=== PATIENT | male | born 1975 | race Caucasian/White ===

== ENCOUNTER 2019-05-19 08:42 | Emergency (ER) | payer OTHER, SELFPAY ==
--- NOTE | ~2019-05-19 | XR_ITS ---
EXAMINATION: XR chest 2V DATE: 05/19/2019 10:55 INDICATION: Shortness of breath. Cough and wheezing. TECHNIQUE: Frontal and lateral views of the chest were obtained. COMPARISON: Chest 2 views 05/31/2013, CT abdomen and pelvis 01/07/2013 FINDINGS: The chest demonstrates clear lungs without pneumonia, pleural effusion, or pneumothorax. Th e heart size is normal. IMPRESSION: 1. No acute cardiopulmonary disease. Reviewed, dictated and finalized at location A. [employer]
[2019-05-19 09:38] VITALS: BP 164/94; PULSE 72; RESP 20; TEMP 36.8; O2SAT 97
--- NOTE | 2019-05-19 10:05 | ED.GENADULT ---
HPI - General Adult General Chief complaint: Upper Respiratory Infection Stated complaint: Congestion/Cold Time Seen by Provider: 05/19/19 10:05 Source: patient Mode of arrival: ambulatory Limitations: no limitations History of Present Illness HPI narrative: 43-year-old male patient presents to the [facility] with complaints of cough and shortness of breath for the past 2 months. Patient denies any fevers that he is aware of but states he has been feeling hot at times. Patient states he has had some head congestion, runny nose, ear pain and sore throat. Patient is not being very cooperative during the exam and not really answering questions and is a very poor historian. Patient states he has seen his doctor multiple times but denies being placed on anything medication vargas. Patient states he has tried [id number] Mucinex but quit taking it is currently not taking any medications and states he no longer wants to take any medications. Patient does have a history of diabetes and states that his sugars have increased to 200-300s since he has been sick Related Data Home Medications Medication Instructions Recorded Confirmed albuterol sulfate [ProAir HFA] INHALATION 05/19/19 budesonide-formoterol [Symbicort] INHALATION 05/19/19 cetirizine mg 05/19/19 diclofenac sodium TOPICAL 05/19/19 duloxetine mg PO 05/19/19 esomeprazole magnesium mg 05/19/19 insulin regular hum U-500 conc 05/19/19 [Humulin R U-500 (Conc) Insulin] insulin regular hum U-500 conc 05/19/19 [Humulin R U-500 (Conc) Insulin] levothyroxine 05/19/19 meloxicam 05/19/19 topiramate 05/19/19 Allergies Allergy/AdvReac Type Severity Reaction Status Date / Time Unable to Assess Allergy Verified 05/19/19 09:52 Review of Systems Review of Systems: Narrative: CONSTITUTIONAL: Denies fever, chills, positive sweats. EYES: Denies visual changes, redness, or discharge. ENT: Positive rhinorrhea, congestion, sore throat, denies otalgia. CARDIOVASCULAR: Denies chest pain, palpitations, or edema. RESPIRATORY: Positive cough with dyspnea. GASTROINTESTINAL: Denies abdominal pain, nausea, vomiting, or diarrhea. GENITOURINARY: Denies dysuria or hematuria. SKIN: Denies rash or itching. MUSCULOSKELETAL: Denies back pain, joint pain, or myalgia. NEUROLOGIC: Positive headache, denies numbness, or weakness. PSYCHIATRIC: Denies anxiety or depression. [facility] Past Medical History Medical History (Updated 05/19/19 @ 11:18 by KODY Nascimento) Back pain Herniated disc Hypercholesterolemia Hypertension Hypothyroidism Tung's Myocardial infarction Type 1 diabetes Family History Family History Other Depression Diabetes mellitus Family history of alcoholism Family history of attention deficit hyperactivity disorder (ADHD) Family history of congestive heart failure Family history of mental disorder Family history of migraine headaches Family history of obesity Social History Social History Alcohol intake: never Comments At the time of my signature I agree with nursing past medical history, surgical, social, and family history. There is no relevant family history pertinent to the presenting complaint. Exam Narrative: Exam Narrative: GENERAL: ill-appearing, well-nourished, and in no acute distress. HEAD: Normocephalic, atraumatic. No tenderness noted to frontal maxillary sinuses on palpation EYES: PERRLA and EOMI. ENT: Nares with erythema and edema noted bilaterally, no rhinorrhea or epistaxis. Mucous membranes moist. Posterior pharynx with no erythema, tonsillar margin, exudates or lesions present. Bilateral TMs are clear with no erythema or foreign bodies in the canal. NECK: Supple. No lymphadenopathy CHEST: Patient does have some tightness and wheezing noted to bilateral upper and lower lobes. No respiratory distress.
[2019-05-19] MEDS: ALBUTEROL SULFATE NEB 2.5 MG/3 ML INH INHALATION (11:12)
[2019-05-19] MEDS: IPRATROPIUM BR 0.02% INH SOLN 0.5 MG/2.5 ML VIAL INHALATION (11:12)
== END 2019-05-19 11:56 | disposition home or self-care (01) ==
PROVIDERS: Emergency Provider Nurse Practitioner Family; PCP Internal Medicine
DX: J40 Bronchitis, not specified as acute or chronic (principal); E78.00 Pure hypercholesterolemia, unspecified; I10 Essential (primary) hypertension; E03.9 Hypothyroidism, unspecified; I25.2 Old myocardial infarction; E10.9 Type 1 diabetes mellitus without complications; E06.3 Autoimmune thyroiditis
CPT/HCPCS: 71046; 94640; 99203; G0463